=== PATIENT | male | born 1990 | race Two or more races ===

== ENCOUNTER → 2019-08-22 | Outpatient (CLI) | payer BC ==
--- NOTE | 2019-08-22 21:41 | RAD ---
Two-view chest dated 08/22/2019. No comparison available. Clinical data indication: Cough for a few days. FINDINGS: PA and lateral views obtained. Heart and mediastinal contours within normal limits. Lungs are clear. No consolidation or pleural effusion. No pneumothorax. IMPRESSION: No evidence of focal pneumonia. Electronically signed by: Flavio Morrow MD (08/22/2019 9:38 PM) [facility]
== END | disposition home or self-care (01) ==
LOC: PMG 17:37
PROVIDERS: ATTEND Physician Assistant
DX: R05 Cough (principal)
CPT/HCPCS: 71046